=== PATIENT | female | born 1975 | race Caucasian/White ===

== ENCOUNTER 2017-09-06 10:02 | Emergency (ER) | payer SELFPAY ==
[2017-09-06 10:12] VITALS: BP 114/67
--- NOTE | 2017-09-06 10:30 | UC ---
Respiratory Complaint HPI - HPI Summary HPI Summary: Patient presents with complaints of sore throat pain x three days that is worse at night. She is able to eat, drink and swallow her own secretions. She slao complains of chest congestion, and persistent productive cough. She denies fever , chills, chest pain, significant dyspnea, abdominal pain, nausea, vomiting or diarrhea. She reports possible ill contacts at the [facility] building. - History of Current Complaint Chief Complaint: UCGeneralIllness Stated Complaint: THROAT PAIN Time Seen by Provider: 09/06/17 10:18 Hx Obtained From: Patient Hx Last Menstrual Period: 08/15/17 Onset/Duration: Gradual Onset, Lasting Days Timing: Constant Severity Initially: Mild Severity Currently: Moderate Character: Cough: Productive Aggravating Factors: Deep Breaths, Recumbent Position Alleviating Factors: Upright Position, Spontaneous Resolution Associated Signs And Symptoms: Positive: URI, Hoarseness - Risk Factors Pulmonary Embolism Risk Factors: Smoking Cardiac Risk Factors: Smoking Tuberculosis Risk Factors: Negative - Allergies/Home Medications Allergies/Adverse Reactions: Allergies Allergy/AdvReac Type Severity Reaction Status Date / Time No Known Allergies Allergy Verified 09/06/17 10:12 PMH/Surg Hx/FS Hx/Imm Hx Previously Healthy: Yes - Surgical History Surgical History: Yes Surgery Procedure, Year, and Place: ,. facial cyst removal X2 - Family History Known Family History: Positive: Cardiac Disease, Other - breast cancer - Social History Occupation: Unemployed Alcohol Use: None Alcohol Amount: pt known to abuse etoh Substance Use Type: None Smoking Status (MU): Heavy Every Day Tobacco Smoker Type: Cigarettes Amount Used/How Often: 1ppd Have You Smoked in the Last Year: Yes Household Exposure Type: Cigarettes - Immunization History Most Recent Influenza Vaccination: Not UTD Review of Systems Constitutional: Fatigue Skin: Negative Eyes: Negative ENT: Sore Throat, Nasal Discharge, Sinus Congestion Respiratory: Cough Cardiovascular: Negative Gastrointestinal: Negative Genitourinary: Negative Motor: Negative Neurovascular: Negative Musculoskeletal: Negative Neurological: Negative Psychological: Negative All Other Systems Reviewed And Are Negative: Yes Physical Exam Triage Information Reviewed: Yes Appearance: Ill-Appearing Vital Signs: Initial Vital Signs Temp 98.2 F 09/06/17 10:08 Pulse 84 09/06/17 10:08 Resp 16 09/06/17 10:08 BP 114/67 09/06/17 10:08 Pulse Ox 100 09/06/17 10:08 Vital Signs Reviewed: Yes Eye Exam: Normal ENT: Positive: Pharynx normal, Pharyngeal erythema, Nasal congestion, Hoarse voice, Uvula midline Neck exam: Normal Neck: Positive: 1 Respiratory: Positive: No respiratory distress, No accessory muscle use, Rhonchi Cardiovascular: Positive: RRR, No Murmur, Pulses Normal Abdominal Exam: Normal Musculoskeletal Exam: Normal Skin Exam: Normal UC Diagnostic Evaluation - Laboratory O2 Sat by Pulse Oximetry: 100 Respiratory Course/Dx - Course Course Of Treatment: Patient presents with an unremarkable past medical history. She presents with history of smoking, and now has sore throat, and chest congestion with coughing. Her findings are consisten with Acute pharyngitis and bronchitis. I do not susect PE as her PERC score is 0. She was treated with Augmentin and tessalon perles. I did tell her to follow up with her PCP in two days. At discharge she had normal VS, was afebrile, and in no respiratory distress. I review the discharge plan with the patient she verbalized understanding and was in agreement with the discharge plan. - Differential Dx/Diagnosis Differential Diagnosis/HQI/PQRI: Bronchitis, Other - pharyngitis Provider Diagnoses: bronchitis. pharyngitis Discharge - Discharge Plan Condition: Stable Disposition: HOME Prescriptions: Amoxicillin/Clavulanate TAB* [Augmentin TAB 500 mg*] 500 mg PO BID #20 tab Benzonatate [TESSALON 200 MG CAP] 200 mg PO TID PRN #30 cap MDD 3 PRN Reason: Cough Patient Education Materials: Pharyngitis (ED), Acute Bronchitis (ED) Referrals: Marnie Jacques MD [Primary Care Provider] - Additional Instructions: Follow up with your PCP in two days.
== END 2017-09-06 10:29 | disposition home or self-care (01) ==
LOC: UCEAST 10:02
DX: J02.9 Acute pharyngitis, unspecified (principal); Z72.0 Tobacco use
CPT/HCPCS: 99212; G0463

== ENCOUNTER 2017-09-10 14:49 | Emergency (ER) | payer SELFPAY ==
--- NOTE | 2017-09-10 16:32 | UC ---
Margarita Corona Nilda, scribed for Farideh Nicole MD on 09/10/17 at 1627 . Throat Pain/Nasal Shun HPI - HPI Summary HPI Summary: This patient is a 41 year old F presenting to [facility] with a chief complaint of sore throat since five days ago. She was seen at during onset of symptoms and received abx. Pt states her throat pain did not resolve and has been worsening, especially on the left side. The patient rates the pain 8/10 in severity and describes it as sharp. Symptoms aggravated at night and are alleviated by nothing. Patient reports cough, posttussive emesis, abd pain, wheezing (worse in the mornings), sinus congestion, and dental pain. Patient denies fever, chills, rash, back pain, and diarrhea. Per triage note, patient states she has not had her flu shot. Pt notes her room is not humidified. Pt has not take OTC decongestants. She reports recent sick contact with roommate. SHx smokes 1 ppd. Medications include Augmentin BID and Tessalon Pearles 3x per day. Patients medication reviewed this visit. - History of Current Complaint Chief Complaint: UCGeneralIllness Stated Complaint: SORE THROAT,COUGH Time Seen by Provider: 09/10/17 16:08 Hx Obtained From: Patient, Medical Records - triage note Hx Last Menstrual Period: 08/15/2017 Onset/Duration: Sudden Onset, Lasting Days, Still Present Severity: Severe Pain Intensity: 8 Pain Scale Used: 0-10 Numeric Cough: Productive Associated Signs & Symptoms: Positive: Other - cough, N/V today, abd pain, wheezing (worse in the mornings), sinus congestion, and dental pain. Patient denies fever, chills, rash, back pain, and diarrhea. Related History: Smoking - Allergies/Home Medications Allergies/Adverse Reactions: Allergies Allergy/AdvReac Type Severity Reaction Status Date / Time No Known Allergies Allergy Verified 09/10/17 15:30 PMH/Surg Hx/FS Hx/Imm Hx Previously Healthy: Yes - Surgical History Surgical History: Yes Surgery Procedure, Year, and Place: ,. facial cyst removal X2 - Family History Known Family History: Positive: Cardiac Disease, Other - breast cancer Negative: Hypertension, Diabetes - Social History Occupation: Unemployed Lives: With Family Alcohol Use: None Alcohol Amount: pt known to abuse etoh Substance Use Type: None Smoking Status (MU): Heavy Every Day Tobacco Smoker Type: Cigarettes Amount Used/How Often: 1ppd Have You Smoked in the Last Year: Yes Household Exposure Type: Cigarettes - Immunization History Most Recent Influenza Vaccination: Not UTD Review of Systems Constitutional: Other - negative chills, rash, and fever ENT: Dental Pain, Sore Throat, Sinus Congestion Respiratory: Cough, Other - wheeze Gastrointestinal: Abdominal Pain, Vomiting, Nausea, Other - negative diarrhea Musculoskeletal: Other: - negative back pain All Other Systems Reviewed And Are Negative: Yes Physical Exam Triage Information Reviewed: Yes Appearance: Well-Appearing, No Pain Distress, Well-Nourished Vital Signs: Initial Vital Signs Temp 98.8 F 09/10/17 15:25 Pulse 79 09/10/17 15:25 BP 105/66 09/10/17 15:25 Pulse Ox 99 09/10/17 15:25 Vital Signs Reviewed: Yes Eye Exam: Normal Eyes: Positive: Conjunctiva Clear ENT Exam: Normal ENT: Positive: Other - scant fluid, R>L + fluid right turbinates inflammed and boggy + PND uvula midline + exudate, + erythema oropharyx Dental Exam: Normal Neck exam: Normal Respiratory Exam: Normal Respiratory: Positive: Chest non-tender, No respiratory distress, No accessory muscle use, Other: - few scattered wheeze no rhonci no retraction Cardiovascular Exam: Normal Cardiovascular: Positive: RRR, No Murmur Abdominal Exam: Normal Abdomen Description: Positive: Nontender, No Organomegaly Bowel Sounds: Positive: Present Musculoskeletal Exam: Normal Neurological Exam: Normal Neurological: Positive: Alert Psychological Exam: Normal Diagnostics - Radiology CXR Radiology Interpretation Completed By: Radiologist - CXR, per radiologist, reveals no radiographic evidence of acute cardiopulmonary disease. physician has reviewed this report and agrees. Re-Evaluation - Re-Evaluation First Eval Re-Evaluation Time: 17:05 Comment: Reviewed lab results. Pt has no insurance so working on getting pt Urgent Rx forms for medications. Throat Pain/Nasal Course/Dx - Course Assessment/Plan: Pt with ongoing throat pain, sinus congestion after taking abx. pt did not change toothbrush. check CXR. change abx. flonase. hydrate. decongestant. recommend yogurt/probiotic for diarrhea with abx change. Pt is stable and will be D/C. Advised to follow up with PCP. - Differential Dx/Diagnosis Provider Diagnoses: pharnygitis, bronchitis Discharge - Discharge Plan Condition: Stable Disposition: HOME Prescriptions: DOXYcycline CAP(*) [DOXYcycline 100MG CAP(*)] 100 mg PO BID #14 cap Pseudoephedrine-Guaifenesin [Guaifenesin/Pseudoephedri 60-600 mg] 1 tab PO BID # 10 tab Forms: *Gen. Provider Communication Referrals: Marnie Jacques MD [Primary Care Provider] - Additional Instructions: - Stay well hydrated. Drink plenty of non-alcoholic, non-caffinated beverages - Stop the Augmentin, and start the new antibiotic - Use the decongestant medication as prescribed - - After you have been on antibiotics for 2 days - change your toothbrush and your pillowcase. These infections are spread by secretions - do NOT share eating or drinking utensils - clean items you share with other people such as cell phones, computer mouse, TV remote, computer tablets, etc - Iti s recommended you eat yogurt or take pro-biotics while taking antbiotics to prevent diarrhea - Contact your doctor to schedule a follow-up appointment. Call your doctor or return return with questions The documentation as recorded by the Margarita reddy Nilda accurately reflects the service I personally performed and the decisions made by me, Farideh Nicole MD.
--- NOTE | 2017-09-10 17:02 | RAD ---
INDICATION: Cough x2 weeks COMPARISON: Chest x-ray July 06, 2016 TECHNIQUE: PA and lateral views of the chest were obtained. FINDINGS: The heart and mediastinum are normal in size and contour. The lungs are grossly clear. There is no evidence of large pleural effusion. Visualized bones are normal for the patient's age. There is no radiographic evidence of free air beneath the diaphragm IMPRESSION: No radiographic evidence of acute cardiopulmonary disease.
[2017-09-10 17:15] VITALS: BP 121/65
== END 2017-09-10 17:18 | disposition home or self-care (01) ==
LOC: UCEAST 14:49
DX: J02.9 Acute pharyngitis, unspecified (principal); J40 Bronchitis, not specified as acute or chronic; F17.210 Nicotine dependence, cigarettes, uncomplicated
CPT/HCPCS: 71020; 87651; 99212; G0463